=== PATIENT | male | born 1975 | race Two or more races ===

== ENCOUNTER 2018-03-05 01:48 | Emergency (ER) | payer SELFPAY ==
[~2018-03-05] VITALS: Ht 172.7 cm; Wt 86.2 kg
[2018-03-05 02:02] VITALS: BP 156/96
[2018-03-05] MEDS ORDERED: KETOROLAC TROMETH 60MG/2ML VIAL IM ONE (03:30)
[2018-03-05] MEDS ORDERED: cefTRIAXone SOD 1,000 MG VL IM ONE (03:30)
[2018-03-05] MEDS ORDERED: LIDOCAINE 1%HCL (LOCAL ANESTH) 10 ML MDV ONE (03:35)
== END 2018-03-05 03:50 | disposition home or self-care (01) ==
LOC: ER 01:48
DX: L03.114 Cellulitis of left upper limb (principal); E11.9 Type 2 diabetes mellitus without complications
CPT/HCPCS: 96372; 99284; J0696; J1885; J2001